=== PATIENT | male | born 1950 | race Caucasian/White ===

== ENCOUNTER 2021-01-03 22:35 | Emergency (ER) | payer MEDICARE ==
[~2021-01-03] VITALS: Ht 185.4 cm; Wt 97.5 kg
== END 2021-01-04 00:49 | disposition left against medical advice (07) ==
LOC: ER 22:35
DX: Z53.21 Procedure and treatment not carried out due to patient leaving prior to being seen by health care provider (principal)

== ENCOUNTER 2025-01-18 09:57 | Observation (INO) | payer MEDICARE ==
[~2025-01-18] VITALS: Ht 185.4 cm; Wt 108.9 kg
[~2025-01-18 09:57] MED LIST: ALLO100 PO; ALOGLIPTIN25 M7; ELIQUIS5 M2 PO; FURO20 PO; INSULANI SC; JARDIANCE25 MG PO; LISI20 PO; METO50; OXYC5 PO; OZEMPIC0.25 MG/0.; POTA10T; ROSU10TA; SILD50TA; SPIR25 PO
[2025-01-18 10:20] LABS: BASOPHILS ABSOLUTE AUTO 0.05 K/mm3 (0.00-0.23); BASOPHILS PERCENT AUTO 0 % (0-2); EOSINOPHILS ABSOLUTE AUTO 0.69 K/mm3 (0.00-0.68); EOSINOPHILS PERCENT AUTO 6 % (0-6); Hematocrit 30.4 % (37.0-53.0); Hemoglobin 10.4 g/dL (13.5-17.5); IMMATURE GRAN ABSOLUTE AUTO 0.10 K/mm3 (0.00-0.10); IMMATURE GRAN PERCENT AUTO 1 % (0-1); LYMPHOCYTES ABSOLUTE AUTO 0.69 K/mm3 (0.84-5.20); LYMPHOCYTES PERCENT AUTO 6 % (21-46); MONOCYTES ABSOLUTE AUTO 1.08 K/mm3 (0.16-1.47); MONOCYTES PERCENT AUTO 9 % (4-13); Mean Corpuscular HGB Conc 34.2 g/dL (31.5-36.5); Mean Corpuscular Volume 93 fL (80-100); NEUTROPHILS ABSOLUTE AUTO 9.26 K/mm3 (1.96-9.15); NEUTROPHILS PERCENT AUTO 78 % (41-73); NRBC ABSOLUTE 0.00 K/mm3 (0.00-0.02); NRBC Auto 0.0 /100 WBC (0.0-0.2); Platelet Count 224 K/mm3 (150-400); RDW Coefficient Variation 13.3 % (11.7-14.2); RDW Standard Deviation 45.5 fL (35.1-46.3)
[2025-01-18] MEDS ORDERED: Morphine Sulfate 4 MG/1 ML Injection IV ONE (10:40)
[2025-01-18] MEDS ORDERED: Ondansetron HCl 2 MG / ML 2ML Vial IV ONE (10:40)
[2025-01-18 10:58] LABS: Alanine Aminotransfer (ALT/SGP 19.0 U/L (12-78); Albumin, Blood 2.8 g/dL (3.4-5.0); Albumin/Globulin Ratio 0.7 (0.8-1.8); Anion Gap 15.0 mmol/L (3-11); Aspartate Aminotrans (AST/SGOT 66.0 U/L (12-37); Bilirubin, Total 2.6 mg/dL (0.1-1.0); Blood Urea Nitrogen 49.0 mg/dL (8-24); CO2, Blood 23.0 mmol/L (21-32); Calcium, Blood 8.7 mg/dL (8.5-10.1); Chloride, Blood 91.0 mmol/L (98-108); Creatinine, Blood 1.62 mg/dL (0.60-1.20); Globulin, Blood 4.0 g/dL (2.2-4.0); Glucose, Blood 159.0 mg/dL (70-99); Potassium, Blood 4.0 mmol/L (3.5-5.5); Sodium, Blood 125.0 mmol/L (136-145); Total Protein, Blood 6.8 g/dL (6.4-8.2)
[2025-01-18] MEDS ORDERED: NS 1,000 ML IV SCH ×2 (11:15→13:05)
[2025-01-18] MEDS ORDERED: Metoprolol Tartrate 1 MG/ML 5 ML VIAL IV ONE (12:05)
[2025-01-18] MEDS ORDERED: Metoprolol Tartrate 1 MG/ML 5 ML VIAL IV PRN (12:30)
[2025-01-18] MEDS ORDERED: FentaNYL Citrate 50 MCG/ML 2 ML Injection IV PRN ×2 (13:50→16:40)
[2025-01-18] MEDS ORDERED: OxyCODONE 5 mg/Acetamin 325 mg TABLET PO PRN ×2 (13:50→17:45)
[2025-01-18] MEDS ORDERED: AMLO5 PO (14:00)
[2025-01-18] MEDS ORDERED: METO100ER PO (14:02)
[2025-01-18] MEDS ORDERED: ROSUVASTATIN CAL5 MG PO (14:02)
[2025-01-18] MEDS ORDERED: OZEMPIC0.25 MG/02 SC (14:06)
[2025-01-18 19:31] VITALS: BP 121/47
--- NOTE | 2025-01-18 20:04 | NUR ---
END OF SHIFT SUMMARY: PT ARRIVED TO FLOOR 1730. A&Ox4. PLEASANT AND COOPERATIVE WITH CARE. CALLS APPROPRIATELY AND IS ABLE TO ADVOCATE NEEDS EFFECTIVELY. CONTINENT OF BOWEL AND HAS SOME INTERMITTENT OVERFLOW AND URGENCY URINARY INCONTINENCE. ORDER OBTAINED FOR HARRIS TO BE PLACED SECONDARY TO STAGEABLE WOUNDS TO BUTTOCK. HAS BEEN UNABLE TO AMBULATE SINCE RIGHT KNEE REPLACEMENT ONE WEEK AGO. PAIN 10/10 UPON ARRIVAL TO FLOOR. MEDICATED FOR PAIN AND FLUIDS STARTED. TELE A-FIB. MED REC COMPLETED. ON AIR BED TO PROMOTE SKIN INTEGRITY. BED IN LOWEST POSITION, CALL LIGHT WITHIN REACH, ALL NEEDS MET. REPORT TO ONCOMING NURSE.
[2025-01-18] MEDS ORDERED: Insulin Human Lispro 100 Units/ML 3ML Syringe SC SCH (21:00)
[2025-01-19 00:02] VITALS: BP 122/48
[2025-01-19 04:56] LABS: Hematocrit 32.8 % (37.0-53.0); Hemoglobin 11.0 g/dL (13.5-17.5); Mean Corpuscular HGB Conc 33.5 g/dL (31.5-36.5); Mean Corpuscular Volume 95 fL (80-100); NRBC ABSOLUTE 0.00 K/mm3 (0.00-0.02); NRBC Auto 0.0 /100 WBC (0.0-0.2); Platelet Count 239 K/mm3 (150-400); RDW Coefficient Variation 13.3 % (11.7-14.2); RDW Standard Deviation 45.9 fL (35.1-46.3)
[2025-01-19 05:16] LABS: Anion Gap 10.0 mmol/L (3-11); Blood Urea Nitrogen 51.0 mg/dL (8-24); CO2, Blood 26.0 mmol/L (21-32); Calcium, Blood 8.9 mg/dL (8.5-10.1); Chloride, Blood 95.0 mmol/L (98-108); Creatinine, Blood 1.32 mg/dL (0.60-1.20); Glucose, Blood 157.0 mg/dL (70-99); Magnesium, Blood 2.6 mg/dL (1.6-2.4); Phosphorus, Blood 3.3 mg/dL (2.5-4.9); Potassium, Blood 4.3 mmol/L (3.5-5.5); Sodium, Blood 127.0 mmol/L (136-145)
--- NOTE | 2025-01-19 06:37 | NUR ---
Shift Summary Dow placed at the start of shift d/t open sacral wound. Pt medicated for severe RLE pain per emar. Pictures in chart of leg and sacral wounds. Pt woke up around 0200 not knowing where he was, who I was or why he was here. At this time he was very distrustful and would not believe me when I tried to re-orient. He spoke briefly of 'getting out of here' but I was able to convince him to stay in bed d/t the state of he RLE. Pt slept well t/o the rest of the night, no c/o of pain and cooperative with staff. He is normally AOx4. No other neuro deficits noted, strength equal on both sides, no facial drop, eyes PERRLA.
[2025-01-19 07:53] VITALS: BP 118/49
[2025-01-19 14:33] VITALS: BP 107/49
--- NOTE | 2025-01-19 16:08 | NUR ---
SHIFT SUMMARY PT IS A/OX4, FORGETFUL AT TIMES. UP TO BSC THIS AFTERNOON WITH 2P ASSIST WITH FWW AND GAIT BELT. WOUNDS TO GROIN/TANNER AREA CLEANSED AND COVERED PER WOUND CARE ORDERS. HARRIS IN PLACE DRAINING CLEAR, YELLOW URINE TO GRAVITY. PT REPORTING PAIN TO THE LOW BACK AND R KNEE, MEDICATED WITH OXYCODONE PER AUG. ON TELE RUNNING AFIB IN THE 80'S. AT BEDSIDE THROUGHOUT THIS SHIFT. PT IS PLEASANT AND COOPERATIVE WITH CARE AND CALL APPROPRIATELY USING THE CALL LIGHT.
[2025-01-19 19:25] VITALS: BP 148/50
[2025-01-20 00:02] VITALS: BP 118/43
[2025-01-20 00:03] VITALS: BP 118/43
--- NOTE | 2025-01-20 03:03 | NUR ---
[employer] REPRESENTATIVE SUMMARY VSS. ALERT AND ORIENTED. REPOSITIONED APPROXIMATELY Q 2 HRS FOR SKIN MAINTENANCE. INCONT OF BOWEL X 1, CLEANED AND DRESSING OF BUTTOCKS CHANGED. HARRIS DRAINING JOANIE, HARRIS CARE DONE. ANALGESICS ADMINISTERED PER PT VOICED NEEDS - SEE MAR FOR DETAILS. HAS BEEN RESTING QUIETLY BETWEEN REPOSITIONING. CALL LIGHT IN REACH, RAILS UP X 2 AND BED IN LOW POSITION FOR SAFETY. WILL CONTINUE TO MONITOR.
[2025-01-20 06:03] VITALS: BP 119/59
[2025-01-20 07:49] VITALS: BP 116/49
[2025-01-20 09:20] LABS: CORONAVIRUS COVID-19 AG Negative (NEGATIVE)
[2025-01-20] MEDS ORDERED: Polyethylene Glycol 3350 17 gm PO STA (10:28)
[2025-01-20] MEDS ORDERED: MIRALAX17 GM PO (10:46)
[2025-01-20] MEDS ORDERED: Percocet 5-3251 EACH PO (10:46)
[2025-01-20 11:05] LABS: Anion Gap 12.0 mmol/L (3-11); Blood Urea Nitrogen 43.0 mg/dL (8-24); CO2, Blood 23.0 mmol/L (21-32); Calcium, Blood 8.9 mg/dL (8.5-10.1); Chloride, Blood 96.0 mmol/L (98-108); Creatinine, Blood 1.12 mg/dL (0.60-1.20); Glucose, Blood 244.0 mg/dL (70-99); Potassium, Blood 4.2 mmol/L (3.5-5.5); Sodium, Blood 127.0 mmol/L (136-145)
--- NOTE | 2025-01-20 11:13 | NUR ---
DISCHARGE PT AOX4, COOPERATIVE, ABLE TO MAKE NEEDS KNONW. PT IS 2 PERSON HEAVY ASSIST TO COMMODE FOR STOOL ELIMINATION. HARRIS CATHETER INTACT AND DRAINING. THIS RN DID SEE INJURY ON BUTTOCKS, IN REPORT, THIS RN WAS TOLD ABOUT A STAGE 3 PRESSURE ULCER, HOWEVER UPON ASSESSMENT, IT APPEARED TO BE AND EXTREMEM CASE OF EXCORIATION, WITH CONSISTANT BLEEDING. TOLERATING MEDICATION. FAMILY IS BEDSIDE. PT TRANSFERRED TO SAFELY AND WITHOUT EVENTS. HARD SCRIPT WENT WITH TRANSPORT FOR PERCOCET. REPORT GIVEN TO "MELINDA" OF [facility].
== END 2025-01-20 11:15 ==
LOC: ER 09:57 → MEDS 09:58 → ER 17:19 → MEDS 17:19
PROVIDERS: Emergency Medicine; ADMIT Internal Medicine
DX: I48.19 Other persistent atrial fibrillation (principal); G89.18 Other acute postprocedural pain; M25.561 Pain in right knee; E86.0 Dehydration; I12.9 Hypertensive chronic kidney disease with stage 1 through stage 4 chronic kidney disease, or unspecified chronic kidney disease; E11.22 Type 2 diabetes mellitus with diabetic chronic kidney disease; N18.30 Chronic kidney disease, stage 3 unspecified; N17.9 Acute kidney failure, unspecified; E87.1 Hypo-osmolality and hyponatremia; E87.20 Acidosis, unspecified; E78.5 Hyperlipidemia, unspecified; I25.10 Atherosclerotic heart disease of native coronary artery without angina pectoris; L89.152 Pressure ulcer of sacral region, stage 2; M25.461 Effusion, right knee; K74.60 Unspecified cirrhosis of liver; K76.6 Portal hypertension; G47.33 Obstructive sleep apnea (adult) (pediatric); Z79.01 Long term (current) use of anticoagulants; Z79.4 Long term (current) use of insulin; Z79.84 Long term (current) use of oral hypoglycemic drugs; Z79.85 Long-term (current) use of injectable non-insulin antidiabetic drugs; Z79.899 Other long term (current) drug therapy; Z95.1 Presence of aortocoronary bypass graft; Z96.651 Presence of right artificial knee joint
CPT/HCPCS: 36415; 73562-RT; 80048; 80053; 82947; 83605; 83735; 83930; 84100; 85025; 85027; 87426-QW; 93005; 93010; 93971; 96361; 96374; 96375; 96376; 97110; 97161; 97166; 97530; 99285-25; A9270; G0378; J2270; J2405; J3010; J7030

== ENCOUNTER 2025-01-24 04:36 | Emergency (ER) | payer OTHER ==
[~2025-01-24] VITALS: Ht 185.4 cm; Wt 108.9 kg
[~2025-01-24 04:36] MED LIST changes: +AMLO5 PO; +METO100ER PO; +MIRALAX17 GM PO; +OZEMPIC0.25 MG/02 SC; +Percocet 5-3251 EACH PO; +ROSUVASTATIN CAL5 MG PO
[2025-01-24] MEDS ORDERED: CEFTRIAXONE2 G1 IV (05:29)
[2025-01-24] MEDS ORDERED: BACLOFEN5 M1 PO (05:29)
[2025-01-24] MEDS ORDERED: VITAMIN D325 MC3 PO (05:30)
[2025-01-24] MEDS ORDERED: GABA100 PO (05:31)
[2025-01-24] MEDS ORDERED: INSULIN AS100 UNIT/7 SC (05:33)
[2025-01-24] MEDS ORDERED: LACT PO (05:36)
[2025-01-24] MEDS ORDERED: LIDO700A20 TOP (05:37)
[2025-01-24] MEDS ORDERED: SENNA LAXATIVE8.6 MG PO (05:41)
[2025-01-24] MEDS ORDERED: MICONAZOLE NITR85 GM TOP (05:43)
[2025-01-24] MEDS ORDERED: OXYC5 PO (05:46)
[2025-01-24] MEDS ORDERED: NS 1,000 ML IV SCH (10:15)
[2025-01-24 12:15] VITALS: BP 108/51
== END 2025-01-24 12:23 | disposition home or self-care (01) ==
LOC: ER 04:36
DX: M17.12 Unilateral primary osteoarthritis, left knee (principal); S83.012A Lateral subluxation of left patella, initial encounter; M25.462 Effusion, left knee; I12.9 Hypertensive chronic kidney disease with stage 1 through stage 4 chronic kidney disease, or unspecified chronic kidney disease; E11.22 Type 2 diabetes mellitus with diabetic chronic kidney disease; N18.30 Chronic kidney disease, stage 3 unspecified; I48.91 Unspecified atrial fibrillation; I25.10 Atherosclerotic heart disease of native coronary artery without angina pectoris; E78.5 Hyperlipidemia, unspecified; K74.60 Unspecified cirrhosis of liver; G47.33 Obstructive sleep apnea (adult) (pediatric); Z95.2 Presence of prosthetic heart valve; Z95.1 Presence of aortocoronary bypass graft; Z96.651 Presence of right artificial knee joint; Z79.01 Long term (current) use of anticoagulants; Z79.85 Long-term (current) use of injectable non-insulin antidiabetic drugs; Z79.84 Long term (current) use of oral hypoglycemic drugs; Z79.4 Long term (current) use of insulin; Z79.899 Other long term (current) drug therapy; X58.XXXA Exposure to other specified factors, initial encounter
CPT/HCPCS: 73560-LT; 73700; 82947; 96360; 96361; 99284-25; J7030